=== PATIENT | female | born 1975 | race Caucasian/White ===

== ENCOUNTER 2018-06-14 14:34 | Emergency (ER) | payer OTHER ==
[~2018-06-14] VITALS: Ht 167.6 cm; Wt 59.0 kg
[~2018-06-14 14:34] MED LIST: ACET500; AZIT250 PO; CEPH500 PO; CIPR500 PO; CIPRO500 MG PO; CLIN150 PO; CLIN300 PO; CRUTCH4 USE; CYCL10 PO; DIPATR PO; HYDACE10B; HYDACE5 PO; IBUP800 PO; LIDO700A20 TOP; NAPR500 PO; NAPR550 PO; OXYC20ER; PRED20 PO; PROM25 PO; PROM6.25SY PO; RXCLIN PO; RXHYDACE PO; RXNAPNA550 PO; RXPROMSY PO; SULTRIDS PO; TRAM50 PO; Tylenol325 MG; Vibramycin100 MG PO
[2018-06-14 15:07] LABS: BASOPHILS ABSOLUTE AUTO 0.05 K/mm3 (0.00-0.23); BASOPHILS PERCENT AUTO 1 % (0-2); EOSINOPHILS ABSOLUTE AUTO 0.16 K/mm3 (0.00-0.68); EOSINOPHILS PERCENT AUTO 2 % (0-6); Hematocrit 40.8 % (33.0-51.0); Hemoglobin 13.3 g/dL (11.5-16.0); IMMATURE GRAN ABSOLUTE AUTO 0.04 K/mm3 (0.00-0.10); IMMATURE GRAN PERCENT AUTO 1 % (0-1); LYMPHOCYTES ABSOLUTE AUTO 2.15 K/mm3 (0.84-5.20); LYMPHOCYTES PERCENT AUTO 27 % (21-46); MONOCYTES ABSOLUTE AUTO 0.62 K/mm3 (0.16-1.47); MONOCYTES PERCENT AUTO 8 % (4-13); Mean Corpuscular HGB 31.2 pg (26.0-34.0); Mean Corpuscular HGB Conc 32.6 g/dL (31.5-36.5); Mean Corpuscular Volume 96 fL (80-100); Mean Platelet Volume 8.9 fL (9.1-12.4); NEUTROPHILS ABSOLUTE AUTO 4.89 K/mm3 (1.96-9.15); NEUTROPHILS PERCENT AUTO 62 % (41-73); Platelet Count 309 K/mm3 (150-400); RDW Coefficient Variation 13.1 % (11.7-14.2); RDW Standard Deviation 45.9 fL (35.1-46.3); Red Blood Cell Count 4.26 M/mm3 (3.80-5.20); White Blood Cell Count 7.91 K/mm3 (4.00-11.30)
[2018-06-14 15:27] LABS: Alanine Aminotransfer (ALT/SGP 13 U/L (12-78); Albumin, Blood 3.4 g/dL (3.4-5.0); Albumin/Globulin Ratio 0.9 (0.8-1.8); Alk Phos 84 U/L (50-136); Anion Gap 6 mmol/L (6-16); Aspartate Aminotrans (AST/SGOT 11 U/L (12-37); Bilirubin, Total 0.3 mg/dL (0.1-1.0); Blood Urea Nitrogen 12 mg/dL (8-24); Bun/Creatinine Ratio 15.9 (12.0-20.0); CO2, Blood 24 mmol/L (21-32); Calcium, Blood 8.4 mg/dL (8.5-10.1); Chloride, Blood 107 mmol/L (98-108); Creatinine, Blood 0.75 mg/dL (0.40-1.00); Globulin, Blood 3.8 g/dL (2.2-4.0); Glomerular Filtration Rate >60 (60-); Glucose, Blood 91 mg/dL (70-99); Sodium, Blood 137 mmol/L (136-145); Total Protein, Blood 7.2 g/dL (6.4-8.2)
[2018-06-14 15:46] LABS: Source, Urine Clean Catch
[2018-06-14 16:05] LABS: Appearance, Urine Hazy (Clear); Bilirubin, Urine Neg (Neg); Blood, Urine 2+ (Neg); Color, Urine Yellow (P-Yellow); Glucose Qualitative, Urine Neg (Neg); Ketones, Urine Neg (Neg); Leukocyte Esterase, Urine 1+ (Neg); Nitrite, Urine Pos (Neg); Protein, Urine 1+ (Neg); Specific Gravity, Urine 1.015 (1.003-1.022); Urobilinogen, Urine NORM (Normal)
[2018-06-14 16:19] LABS: Bacteria Many /hpf; Squamous Epithelial Cells Mod /hpf (Few)
[2018-06-14] MEDS ORDERED: Omeprazole20 M1 PO (16:56)
[2018-06-14] MEDS ORDERED: Macrobid 100 M100 MG PO (16:56)
[2018-06-14] MEDS ORDERED: NO ROUTINE MEDS (17:23)
== END 2018-06-14 18:30 | disposition home or self-care (01) ==
LOC: ER 14:34
PROVIDERS: Physician Assistant
DX: K21.0 Gastro-esophageal reflux disease with esophagitis (principal); N39.0 Urinary tract infection, site not specified; F17.210 Nicotine dependence, cigarettes, uncomplicated; Z79.899 Other long term (current) drug therapy
CPT/HCPCS: 36415; 80053; 81001; 81025; 83690; 84484; 85025; 87077; 87086; 87186; 93005; 93010; 96374; 99283-25; J2405

== ENCOUNTER 2018-09-08 22:05 | Emergency (ER) | payer OTHER ==
[~2018-09-08] VITALS: Ht 167.6 cm; Wt 59.0 kg
[~2018-09-08 22:05] MED LIST changes: +Macrobid 100 M100 MG PO; +NO ROUTINE MEDS; +Omeprazole20 M1 PO
[2018-09-08 22:51] LABS: BASOPHILS ABSOLUTE AUTO 0.06 K/mm3 (0.00-0.23); BASOPHILS PERCENT AUTO 1 % (0-2); EOSINOPHILS ABSOLUTE AUTO 0.17 K/mm3 (0.00-0.68); EOSINOPHILS PERCENT AUTO 2 % (0-6); Hematocrit 39.4 % (33.0-51.0); Hemoglobin 12.7 g/dL (11.5-16.0); IMMATURE GRAN ABSOLUTE AUTO 0.03 K/mm3 (0.00-0.10); IMMATURE GRAN PERCENT AUTO 0 % (0-1); LYMPHOCYTES ABSOLUTE AUTO 3.27 K/mm3 (0.84-5.20); LYMPHOCYTES PERCENT AUTO 33 % (21-46); MONOCYTES ABSOLUTE AUTO 0.78 K/mm3 (0.16-1.47); MONOCYTES PERCENT AUTO 8 % (4-13); Mean Corpuscular HGB 30.7 pg (26.0-34.0); Mean Corpuscular HGB Conc 32.2 g/dL (31.5-36.5); Mean Corpuscular Volume 95 fL (80-100); Mean Platelet Volume 9.3 fL (9.1-12.4); NEUTROPHILS ABSOLUTE AUTO 5.59 K/mm3 (1.96-9.15); NEUTROPHILS PERCENT AUTO 57 % (41-73); Platelet Count 394 K/mm3 (150-400); RDW Coefficient Variation 12.4 % (11.7-14.2); RDW Standard Deviation 43.2 fL (35.1-46.3); Red Blood Cell Count 4.14 M/mm3 (3.80-5.20)
[2018-09-08 23:06] LABS: Troponin I <0.015 ng/mL (0.000-0.040)
[2018-09-08 23:21] LABS: Alanine Aminotransfer (ALT/SGP 16 U/L (12-78); Albumin, Blood 3.2 g/dL (3.4-5.0); Albumin/Globulin Ratio 0.8 (0.8-1.8); Alk Phos 95 U/L (50-136); Anion Gap 6 mmol/L (6-16); Aspartate Aminotrans (AST/SGOT 13 U/L (12-37); Bilirubin, Total <0.1 mg/dL (0.1-1.0); Blood Urea Nitrogen 14 mg/dL (8-24); Bun/Creatinine Ratio 14.2 (12.0-20.0); CO2, Blood 26 mmol/L (21-32); Calcium, Blood 8.4 mg/dL (8.5-10.1); Chloride, Blood 107 mmol/L (98-108); Creatinine, Blood 0.98 mg/dL (0.40-1.00); Globulin, Blood 3.9 g/dL (2.2-4.0); Glomerular Filtration Rate >60 (60-); Glucose, Blood 94 mg/dL (70-99); Potassium, Blood 3.9 mmol/L (3.5-5.5); Sodium, Blood 139 mmol/L (136-145); Total Protein, Blood 7.1 g/dL (6.4-8.2)
[2018-09-08 23:38] LABS: Source, Urine Clean Catch
[2018-09-08 23:40] LABS: Bilirubin, Urine Neg (Neg); Blood, Urine Neg (Neg); Glucose Qualitative, Urine Neg (Neg); Ketones, Urine Neg (Neg); Leukocyte Esterase, Urine Neg (Neg); Nitrite, Urine Neg (Neg); Protein, Urine Neg (Neg); Urobilinogen, Urine NORM (Normal)
[2018-09-08 23:44] LABS: Appearance, Urine Clear (Clear); Color, Urine Yellow (P-Yellow)
== END 2018-09-09 03:03 | disposition home or self-care (01) ==
LOC: ER 22:05
PROVIDERS: Emergency Medicine; Physician Assistant
DX: R07.9 Chest pain, unspecified (principal); Z88.0 Allergy status to penicillin; Z88.6 Allergy status to analgesic agent; Z88.8 Allergy status to other drugs, medicaments and biological substances; F17.210 Nicotine dependence, cigarettes, uncomplicated
CPT/HCPCS: 36415; 71046; 80053; 81003; 81025; 84484; 85025; 85379; 93005; 93010; 96374; 96376; 99285-25; J2270

== ENCOUNTER 2019-12-22 17:56 | Inpatient (IN) | payer OTHER ==
[~2019-12-22] VITALS: Ht 167.6 cm; Wt 56.3 kg
[2019-12-22 18:46] LABS: BASOPHILS ABSOLUTE AUTO 0.04 K/mm3 (0.00-0.23); BASOPHILS PERCENT AUTO 0 % (0-2); EOSINOPHILS ABSOLUTE AUTO 0.03 K/mm3 (0.00-0.68); EOSINOPHILS PERCENT AUTO 0 % (0-6); Hematocrit 39.5 % (33.0-51.0); Hemoglobin 12.8 g/dL (11.5-16.0); IMMATURE GRAN ABSOLUTE AUTO 0.05 K/mm3 (0.00-0.10); IMMATURE GRAN PERCENT AUTO 0 % (0-1); LYMPHOCYTES PERCENT AUTO 11 % (21-46); MONOCYTES ABSOLUTE AUTO 1.01 K/mm3 (0.16-1.47); MONOCYTES PERCENT AUTO 7 % (4-13); Mean Corpuscular HGB 30.6 pg (26.0-34.0); Mean Corpuscular HGB Conc 32.4 g/dL (31.5-36.5); Mean Corpuscular Volume 95 fL (80-100); Mean Platelet Volume 8.9 fL (9.1-12.4); NEUTROPHILS ABSOLUTE AUTO 11.69 K/mm3 (1.96-9.15); NEUTROPHILS PERCENT AUTO 82 % (41-73); Platelet Count 402 K/mm3 (150-400); RDW Standard Deviation 45.2 fL (35.1-46.3); Red Blood Cell Count 4.18 M/mm3 (3.80-5.20); White Blood Cell Count 14.32 K/mm3 (4.00-11.30)
[2019-12-22 19:17] LABS: Alanine Aminotransfer (ALT/SGP 24 U/L (12-78); Albumin, Blood 2.9 g/dL (3.4-5.0); Albumin/Globulin Ratio 0.5 (0.8-1.8); Alk Phos 103 U/L (50-136); Anion Gap 7 mmol/L (6-16); Aspartate Aminotrans (AST/SGOT 18 U/L (12-37); Bilirubin, Total 0.3 mg/dL (0.1-1.0); Blood Urea Nitrogen 8 mg/dL (8-24); Bun/Creatinine Ratio 11.9 (12.0-20.0); CO2, Blood 21 mmol/L (21-32); Calcium, Blood 8.7 mg/dL (8.5-10.1); Chloride, Blood 107 mmol/L (98-108); Creatinine, Blood 0.67 mg/dL (0.40-1.00); Globulin, Blood 5.8 g/dL (2.2-4.0); Glomerular Filtration Rate >60 (60-); Glucose, Blood 90 mg/dL (70-99); Potassium, Blood 3.4 mmol/L (3.5-5.5); Sodium, Blood 135 mmol/L (136-145); Total Protein, Blood 8.7 g/dL (6.4-8.2)
[2019-12-22 20:20] LABS: Source, Urine Clean Catch
[2019-12-22 20:22] LABS: Appearance, Urine Hazy (Clear); Bilirubin, Urine Neg (Neg); Blood, Urine 4+ (Neg); Color, Urine Yellow (P-Yellow); Glucose Qualitative, Urine Neg (Neg); Ketones, Urine Neg (Neg); Leukocyte Esterase, Urine 2+ (Neg); Nitrite, Urine Pos (Neg); Protein, Urine 3+ (Neg); Specific Gravity, Urine 1.015 (1.003-1.022); Urobilinogen, Urine NORM (Normal)
[2019-12-22 20:30] LABS: White Blood Cells, Urine 50-100 /hpf (0-5)
[2019-12-22 20:31] LABS: Bacteria Many /hpf; Red Blood Cells, Urine 0-2 /hpf (0-2); Squamous Epithelial Cells Few /hpf (Few)
[2019-12-22] MEDS ORDERED: Protonix40 MG PO (22:05)
[2019-12-22] MEDS ORDERED: SODCHL1 PO (22:05)
--- NOTE | 2019-12-23 04:25 | NUR ---
SHIFT SUMMARY: PT ADMITTED FROM ER TONIGHT. HAS REMAINED SINUS TACHYCARDIC ALL NIGHT. HR 100-116. TEMP 100.5. TYLENOL ADMINISTERED, TEMP DOWN TO 99.4 THIS AM. L FLANK PAIN WRAPS AROUND TO L ABD, MANAGED W/ PRN FENTANYL AND DILAUDID. DENIES NAUSEA. EATING SEVERAL SANDWICHES AND SNACKS TONIGHT. STATES SHE IS VERY HUNGRY AND HASN'T HAD A GOOD MEAL IN DAYS. MIKE PO INTAKE WELL. IV FLUIDS CONTINOUSLY PER ORDERS. REPORTS BURNING W/URINATION. NO ACUTE CONCERNS AT THIS TIME. AA0X4. MAKING NEEDS KNOWN.
[2019-12-23 05:02] LABS: BASOPHILS ABSOLUTE AUTO 0.04 K/mm3 (0.00-0.23); BASOPHILS PERCENT AUTO 0 % (0-2); EOSINOPHILS ABSOLUTE AUTO 0.05 K/mm3 (0.00-0.68); EOSINOPHILS PERCENT AUTO 0 % (0-6); Hematocrit 41.9 % (33.0-51.0); Hemoglobin 13.4 g/dL (11.5-16.0); IMMATURE GRAN ABSOLUTE AUTO 0.04 K/mm3 (0.00-0.10); IMMATURE GRAN PERCENT AUTO 0 % (0-1); LYMPHOCYTES ABSOLUTE AUTO 2.85 K/mm3 (0.84-5.20); LYMPHOCYTES PERCENT AUTO 21 % (21-46); MONOCYTES ABSOLUTE AUTO 1.01 K/mm3 (0.16-1.47); MONOCYTES PERCENT AUTO 8 % (4-13); Mean Corpuscular HGB 30.6 pg (26.0-34.0); Mean Corpuscular Volume 96 fL (80-100); Mean Platelet Volume 8.9 fL (9.1-12.4); NEUTROPHILS ABSOLUTE AUTO 9.48 K/mm3 (1.96-9.15); NEUTROPHILS PERCENT AUTO 70 % (41-73); Platelet Count 394 K/mm3 (150-400); RDW Coefficient Variation 12.8 % (11.7-14.2); RDW Standard Deviation 45.5 fL (35.1-46.3); Red Blood Cell Count 4.38 M/mm3 (3.80-5.20); White Blood Cell Count 13.47 K/mm3 (4.00-11.30)
[2019-12-23 05:37] LABS: Anion Gap 7 mmol/L (6-16); Blood Urea Nitrogen 9 mg/dL (8-24); Bun/Creatinine Ratio 12.3 (12.0-20.0); CO2, Blood 20 mmol/L (21-32); Calcium, Blood 8.6 mg/dL (8.5-10.1); Chloride, Blood 108 mmol/L (98-108); Creatinine, Blood 0.73 mg/dL (0.40-1.00); Glomerular Filtration Rate >60 (60-); Glucose, Blood 99 mg/dL (70-99); Potassium, Blood 3.7 mmol/L (3.5-5.5); Sodium, Blood 135 mmol/L (136-145)
--- NOTE | 2019-12-23 06:07 | NUR ---
LATE ENTRY. CONTACTED HOSPITALIST AT 2330 DUE TO PT REPORT OF L FLANK AND L ABD PAIN 02/01 AND NO AVAILABLE ANALGESICS FOR PAIN MANAGEMENT. SPOKE W/ . ORDER FOR DILAUDID 1-2MG IV Q6HRS PRN FOR SEVERE PAIN.
--- NOTE | 2019-12-23 09:36 | NUR ---
INCREASE DILAUDID TO Q4P PATIENT IS TEARFUL AT THIS TIME C/O OF 10/[address]CUSS[address] THIS WITH [address] HURST, VERBAL ORDER TO INCREASE FREQUENCY FROM Q6P TO Q4P.
--- NOTE | 2019-12-23 12:48 | NUR ---
Patient was found ambulating in the hallway. When this RN entered room, IV was disconnected, uncapped, and alarming. Fluids were also stopped. Patient was gone for approximately 50 minutes from 1140 to 1230. Upon return, was escorting patient back with a wheelchair. This RN explained that patient could not go outside with a tele on because there is no signal and heart can not be monitored. Also discussed that she can not be out for longer than 1 hour otherwise risk being discharged and that she can not disconnect herself from the IV. Patient stated she went outside for some fresh air. When asked if she smoked, she said yes. Offered nicotine patch, patient declined for the second time today. Patient expressed understanding of discussion.
--- NOTE | 2019-12-23 17:54 | NUR ---
Shift Summary A/Ox4, patient has been in bed all day since the discussion this morning about not leaving the room. Slept most of the day and then sat at the edge of the bed nodding off. Patient was drowsy and lethargic, arousable when verbalized name, but immediately drifts back to being lethargic. Dr. Enciso notified, tox screen ordered. Medicated for 10/10 L flank pain twice in AM and once around 1800 with good relief. Toward end of shift, mentation improved back to baseline. Tolerating meals well. NS @ 100. Tele: 119 this morning. Up in room and to bathroom independently. No nausea, vomiting, sob. Febrile with temps averaging 100.0. Will continue to monitor.
[2019-12-23 19:12] LABS: U Amphetamine Screen DETECTED; U Barbituate Screen Not Detected; U Benzodiazapine Screen Not Detected; U Buprenorphine Screen Not Detected; U Cannabinoids Screen Not Detected; U Cocaine Screen Not Detected; U Methadone Screen Not Detected; U Methamphetamine Screen DETECTED; U Opiates Screen DETECTED; U Oxycodone Screen Not Detected; U Phencyclidine Screen Not Detected; U Propoxyphene Screen Not Detected
[2019-12-24 05:20] LABS: BASOPHILS ABSOLUTE AUTO 0.04 K/mm3 (0.00-0.23); BASOPHILS PERCENT AUTO 0 % (0-2); EOSINOPHILS PERCENT AUTO 1 % (0-6); Hematocrit 34.1 % (33.0-51.0); IMMATURE GRAN ABSOLUTE AUTO 0.04 K/mm3 (0.00-0.10); IMMATURE GRAN PERCENT AUTO 0 % (0-1); LYMPHOCYTES ABSOLUTE AUTO 2.67 K/mm3 (0.84-5.20); LYMPHOCYTES PERCENT AUTO 27 % (21-46); MONOCYTES ABSOLUTE AUTO 1.04 K/mm3 (0.16-1.47); MONOCYTES PERCENT AUTO 11 % (4-13); Mean Corpuscular HGB 30.2 pg (26.0-34.0); Mean Corpuscular HGB Conc 32.3 g/dL (31.5-36.5); Mean Corpuscular Volume 94 fL (80-100); Mean Platelet Volume 8.8 fL (9.1-12.4); NEUTROPHILS ABSOLUTE AUTO 5.89 K/mm3 (1.96-9.15); NEUTROPHILS PERCENT AUTO 60 % (41-73); Platelet Count 368 K/mm3 (150-400); RDW Coefficient Variation 13.1 % (11.7-14.2); RDW Standard Deviation 45.4 fL (35.1-46.3); Red Blood Cell Count 3.64 M/mm3 (3.80-5.20); White Blood Cell Count 9.78 K/mm3 (4.00-11.30)
--- NOTE | 2019-12-24 05:35 | NUR ---
IV TUBING DISCONNECTED TONIGHT BY THIS RN SO PT COULD GO OUTSIDE TO SMOKE. PT RETURNED TO ROOM AND WITHOUT NOTIFYING STAFF, INDEPENDENTLY REMOVED TAMPER TAPE FROM IV, REATTACHED IV TUBING, AND RESTARTED IV FLUIDS. SPOKE W/ PT UPON WAKING THAT SHE IS NOT TO REMOVE HER OWN TAMPER TAPE OR TOUCH THE IV PUMPS. INFORMED HER THAT SHE MUST CALL FOR ASSISTANCE FOR THIS. PT VERBALIZED UNDERSTANDING. CHARGE NURSE NOTIFIED.
[2019-12-24 05:38] LABS: Albumin, Blood 2.1 g/dL (3.4-5.0); Anion Gap 4 mmol/L (6-16); Blood Urea Nitrogen 7 mg/dL (8-24); CO2, Blood 25 mmol/L (21-32); Calcium, Blood 8.6 mg/dL (8.5-10.1); Chloride, Blood 109 mmol/L (98-108); Creatinine, Blood 0.58 mg/dL (0.40-1.00); Glomerular Filtration Rate >60 (60-); Glucose, Blood 114 mg/dL (70-99); Magnesium, Blood 1.6 mg/dL (1.6-2.4); Phosphorus, Blood 3.3 mg/dL (2.5-4.9); Potassium, Blood 3.5 mmol/L (3.5-5.5); Sodium, Blood 138 mmol/L (136-145)
[2019-12-24] MEDS ORDERED: LEVFLO500 PO (10:23)
--- NOTE | 2019-12-24 11:50 | NUR ---
PT SITTING UP TO EOB, LEANING ON BS TABLE DURING SHIFT REPORT. S/O SLEEPING IN PT'S BED. PER SHIFT REPORT, PT GOING OUT TO [facility] AT [facility], UNHOOKING IVF'S AND USING IV FOR METH ADMIN. TAMPER TAPE PLACED, BUT PT REMOVING. DR HURST IN TO SEE PT THIS AM. D/C ORDERS PLACED. IV TO RH D/C'D AFTER ABX INFUSED. PT'S S/O IN AND OUT OF RM, NONCOMPLIANT WITH MASK WEARING POLICY. CHRISTIAN Mahmood RN INSTRUCTED PT AND VISITOR TO WEAR MASKS WHEN OUT OF RM. VISITOR STARTED CURSING AND REFUSED. D/C INSTRUCTIONS DISCUSSED WITH PT. MEDS FAXED TO [facility], PER PT REQUEST. PT REFUSED TO BE ESCORTED OUT TO CAR. VISITOR VERY RUDE, LEFT CURSING, WITH PT AT HIS SIDE. SECURITY NOTIFIED, PER CHRISTIAN Mahmood RN, TO MAKE SURE PT AND VISITOR LEFT.
== END 2019-12-24 10:29 | disposition home or self-care (01) | DRG 872 ==
LOC: ER 17:56 → MEDS 23:09
PROVIDERS: Emergency Medicine; Internal Medicine; ADMIT Family Medicine
DX: A41.50 Gram-negative sepsis, unspecified (principal); N10 Acute pyelonephritis; E87.1 Hypo-osmolality and hyponatremia; Z90.5 Acquired absence of kidney; E87.6 Hypokalemia; F19.10 Other psychoactive substance abuse, uncomplicated; F17.210 Nicotine dependence, cigarettes, uncomplicated
CPT/HCPCS: 36415; 74176; 80048; 80053; 80069; 81001; 81025; 83605; 83690; 83735; 85025; 87077; 87086; 87186; 96361; 96365; 96375; 99285-25; A9270; J0696; J1170; J1650; J2405; J3010; J7030